=== PATIENT | male | born 1950 | race Caucasian/White ===

== ENCOUNTER → 2017-04-06 | Day surgery (SDC) | payer MEDICARE, BC ==
[~2017-04-06] MED LIST: FENT75DI T-DERMAL; FOSI10TA PO; LEVO.075 PO; LIDOCAINE HCL 1% PF 30 ML VIAL INFIL ONE; MEPERIDINE HCL 25 MG/ML VIAL IV ONE; MIDAZOLAM HCL 2 MG/2 ML VIAL IV ONE; PROPOFOL 200 MG/20 ML AMP IV ONE; SODIUM CHLORIDE 0.9% 10 ML VIAL ONE; TRIAMCINOLONE ACETONIDE 40 MG/ML VIAL NERV BLOCK ONE
--- NOTE | 2017-04-06 20:57 | M6 ---
cc: Arnav QUEZADA DATE 04/06/2017 51. PROCEDURE Caudal epidural steroid injection. History and physical was completed and signed. Consent was signed. Procedure site was marked. Medications were listed and reconciled. Pain score was recorded. Allergies were noted. Time out was taken. Fluoroscopy time was recorded where applicable. Sedation was administered or directed by Dr. Quezada. The patient was given oxygen. The patient was monitored by a registered nurse. Total procedure time was greater than 15 minutes. IV was started, blood pressure cuff, pulse oximeter and EKG were applied. The patient was placed in the prone position on a Lev table sedated with small amounts of propofol titrated to effect. Vital signs were monitored and remained stable throughout the procedure. The sacral area was prepped with alcohol and 10% Betadine solution, draped with sterile drapes. Fluoroscopy was used to visualize the sacral hiatus. A 2 1/2 inch 20-gauge spinal needle was advanced under fluoroscopic guidance between anterior and posterior lamina of the sacrum. There was negative aspiration for blood or any other type of fluid. The patient was given 12 mL of 0.5% Xylocaine, 60 mg of Kenalog. Following this, the patient was taken to the recovery room with stable vital signs neurologically intact. MD CARTER Underwood/ /9:19 AM /8:42 PM
== END | disposition home or self-care (01) ==
LOC: PHSDC 07:23
PROVIDERS: ATTEND Pain Medicine Interventional Pain Medicine
DX: M54.2 Cervicalgia (principal)
CPT/HCPCS: 62323; 99152; J2175; J2250; J3301

== ENCOUNTER → 2017-07-20 | Day surgery (SDC) | payer MEDICARE, BC ==
[~2017-07-20] MED LIST changes: +LIDOCAINE HCL 1% 30 ML VIAL NERV BLOCK ONE; -LIDOCAINE HCL 1% PF 30 ML VIAL INFIL ONE; -TRIAMCINOLONE ACETONIDE 40 MG/ML VIAL NERV BLOCK ONE; +methylPREDNISolone ACETATE 80 MG/ML VIAL ONE
--- NOTE | 2017-07-22 11:11 | M6 ---
cc: Arnav QUEZADA DATE 07/20/2017 DATE OF 11/24/1940 PROCEDURE Caudal epidural steroid injection. PROCEDURE NOTE History and physical was completed and signed. Consent was signed. Procedure site was marked. Medications were listed and reconciled. Pain score was recorded. Allergies were noted. Time out was taken. Fluoroscopy time was recorded where applicable. Sedation was administered or directed by Dr. Quezada. The patient was given oxygen. The patient was monitored by a registered nurse. Total procedure time was greater than 15 minutes. An IV was started, blood pressure cuff, pulse oximeter and EKG were applied. The patient was placed in the prone position, sedated with small amounts of Versed and propofol titrated to effect. Vital signs were monitored and remained stable throughout the procedure. The sacral and coccygeal area were scrubbed with antimicrobial solution and prepped with 10% Betadine solution. The sacral hiatus was palpated. A 2-inch 20 gauge spinal needle was inserted easily on the first attempt. There was negative aspiration for blood or CSF. There was no apparent paresthesia. The patient was slowly given 20 mL of 0.5% Xylocaine which contained 80 mg of Depo-Medrol. The patient was taken to the recovery area with stable vital signs, neurologically intact. MD CARTER Underwood/NAVID /8:55 AM /11:05 AM
== END | disposition home or self-care (01) ==
LOC: PHSDC 07:15
PROVIDERS: ATTEND Pain Medicine Interventional Pain Medicine
DX: M54.2 Cervicalgia (principal); M79.622 Pain in left upper arm; M79.621 Pain in right upper arm
CPT/HCPCS: 62323; 99152; J1040; J2175; J2250

== ENCOUNTER → 2017-08-18 | Day surgery (SDC) | payer MEDICARE, BC ==
[~2017-08-18] MED LIST changes: +IOHEXOL 180 MG/ML 20 ML VIAL (for RAD DIAG) EPIDURAL ONE
--- NOTE | 2017-08-18 09:32 | M6 ---
cc: Arnav Quezada MD 08/18/2017 Corrected Copy: 08/24/17 : 52 PROCEDURE: Caudal epidural steroid injection. PROCEDURE NOTE History and physical was completed and signed. Consent was signed. Procedure site was marked. Medications were listed and reconciled. Pain score was recorded. Allergies were noted. Time out was taken. Fluoroscopy time was recorded where applicable. Sedation was administered or directed by Dr. Quezada. The patient was given oxygen. The patient was monitored by a registered nurse. Total procedure time was greater than 15 minutes. An IV was started, blood pressure cuff, pulse oximeter and EKG were applied. The patient was placed in the prone position on a Lev table, sedated with small amounts of propofol titrated to effect. Vital signs were monitored and remained stable throughout the procedure. The sacral area was prepped with alcohol and 10% Betadine solution, draped with sterile drapes. Fluoroscopy was used in both the AP and lateral projection to clearly visualize the sacral hiatus. A 2-1/2 inch, 22-gauge spinal needle was advanced through the sacral hiatus between the anterior and posterior lamina of the sacrum. There was negative aspiration for blood or any other type of fluid and the patient was given 20 mL of 0.5% Lidocaine, 80 mg of Depo-Medrol. Following the procedure the patient was taken to the recovery room with stable vital signs, neurologically intact. Arnav Quezada MD [facility] , 08:59 AM , 09:30 AM
--- NOTE | 2017-08-20 14:38 | M6 ---
cc: Arnav Quezada MD 08/18/2017 PROCEDURE: Caudal epidural steroid injection. ADDENDUM A ADDENDUM B CAUDAL EPIDURAL STEROID INJECTION Position, prone. Medication, 20 mL 0.5% lidocaine, 80 mg Depo Medrol. Arnav Quezada MD [facility] , 06:52 AM , 02:37 PM
== END | disposition home or self-care (01) ==
LOC: PHSDC 06:48
PROVIDERS: ATTEND Pain Medicine Interventional Pain Medicine
DX: M54.5 Low back pain (principal)
CPT/HCPCS: 62323; 99152; J1040; J2175; J2250; Q9965